=== PATIENT | male | born 1970 | race Caucasian/White ===

== ENCOUNTER 2020-12-28 06:38 | Inpatient (IN) | payer OTHER ==
[~2020-12-28] VITALS: Ht 172.7 cm; Wt 88.0 kg
[2020-12-28 06:44] VITALS: BP 97/58
[2020-12-28 07:04] LABS: ABSOLUTE BASOPHILS 0.1 thou/uL (0.0-0.2); ABSOLUTE EOSINOPHILS 0.1 thou/uL (0.0-0.7); ABSOLUTE LYMPHOCYTES 1.4 thou/uL (0.8-5.3); ABSOLUTE MONOCYTES 1.3 thou/uL (0.0-1.2); ABSOLUTE NEUTROPHILS 8.7 thou/uL (1.6-8.1); BASOPHILS 1.1 %; EOSINOPHILS 0.7 %; HEMATOCRIT 44.8 % (42.0-52.0); HEMOGLOBIN 15.2 gm/dL (14.0-18.0); MCHC 33.9 g/dL (28.0-37.0); MCV 97.4 fL (80.0-100.0); MPV 7.6 fl. (7.2-11.1); NUCLEATED RBCS 0 /100WBC; PLATELET COUNT* 269 thou/uL (150-400); POLYS 75.2 %; RBC 4.61 mil/uL (4.50-6.00); WBC 11.6 thou/uL (4.0-11.0)
[2020-12-28 07:27] LABS: CALCIUM 9.1 mg/dL (8.5-10.1); CREATININE 2.5 mg/dL (0.6-1.3); POTASSIUM 3.4 mmol/L (3.5-5.1)
--- NOTE | 2020-12-28 07:30 | NUR ---
PT STATED HE WAS HAVING A DIFFICULT TIME PROVIDING A URINE SAMPLE BECAUSE OF THE "GUYS BEHIND THE CURTAIN HISSING AT ME". WHEN THIS NURSE ASKED TO ELABORATE, PT STATED HE'S BEEN HALLUCINATING FOR THE LAST "FEW DAYS" & AT FIRST HE THOUGHT THEY WERE REAL BUT NOW KNOWS THAT IT'S NOT, BUT THE VISUAL & AUDITORY HALLUCINATIONS HAVE NOT STOPPED.
[2020-12-28 07:37] LABS: ALBUMIN 3.9 g/dL (3.4-5.0); MAGNESIUM 1.8 mg/dL (1.8-2.4); TOTAL BILIRUBIN 1.6 mg/dL (<0.1-1.0); TOTAL PROTEIN 7.3 g/dL (6.4-8.2)
[2020-12-28 08:11] LABS: URINE BLOOD NEGATIVE (Negative); URINE CLARITY CLEAR; URINE COLOR YELLOW; URINE GLUCOSE-RANDOM TRACE (Negative); URINE KETONES 1+ (Negative); URINE LEUKOCYTES-REFLEX NEGATIVE (Negative); URINE NITRITE-REFLEX NEGATIVE (Negative); URINE PROTEIN TRACE (Negative); URINE UROBILINOGEN >= 8.0 E.U./dl (0.2-1.0)
[2020-12-28 08:14] LABS: ICTOTEST (BILI CONFIRMATORY) Positive (Negative); URINE BILIRUBIN 1+ (Negative)
--- NOTE | 2020-12-28 09:27 | EKG ---
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 : [id number] Requested By: Nat Ross Order Number: [id number] MD: Celestino Gee Measurements Intervals [place] Rate: 104 P: 73 PA: 119 QRS: 66 QRSD: 104 T: 36 QT: 365 QTc: 481 Interpretive Statements Sinus tachycardia Probable left atrial enlargement Abnormal inferior Q waves Minimal ST depression, inferior leads Borderline prolonged QT interval No previous ECG available for comparison Electronically Signed On 12-28-2020 9:27:06 CDT by Celestino Gee [email or web address] <ELECTRONICALLY SIGNED> By: Celestino Gee MD, [facility] 12/28/20 0927 0642 [id number] Celestino Gee MD, [facility] /EPI
[2020-12-28 09:50] VITALS: BP 120/96
[2020-12-28 12:00] VITALS: BP 152/90
[2020-12-28 12:30] VITALS: BP 151/97
[2020-12-28 20:00] VITALS: BP 107/70
[2020-12-28 21:56] LABS: AMP/METHAMP POSITIVE (Negative); BARBITURATES Negative (Negative); BENZODIAZEPINES Negative (Negative); COCAINE Negative (Negative); METHADONE Negative (Negative); OPIATES Negative (Negative); PCP Negative (Negative); THC Negative (Negative)
--- NOTE | 2020-12-29 00:09 | NUR ---
INITIAL ASSESSMENT PT ANSWERING ALL THE ORIENTATION QUESTIONS CORRECTLY. PT HAVING VISUAL HALLUCINATIONS. PT BECOMING MORE AGITATED. PULLING OFF TELEMETRY PULLING IV TUBING. PT FOUND IN ANOTHER PTS ROOM AND WAS CONFUSED. DR MELENDEZ NOTIFIED. HALDOL AND ATIVAN ORDERED AND GIVN. SECURITY IS PRESENTLY WITH PT. UDS CAME BACK POSITIVE FOR METHAMPHETAMINE. 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.
[2020-12-29 03:49] LABS: ABSOLUTE BASOPHILS 0.1 thou/uL (0.0-0.2); ABSOLUTE EOSINOPHILS 0.2 thou/uL (0.0-0.7); ABSOLUTE LYMPHOCYTES 2.3 thou/uL (0.8-5.3); ABSOLUTE MONOCYTES 0.9 thou/uL (0.0-1.2); BASOPHILS 1.1 %; EOSINOPHILS 2.2 %; HEMATOCRIT 40.7 % (42.0-52.0); HEMOGLOBIN 14.1 gm/dL (14.0-18.0); LYMPHOCYTES 27.3 %; MCH 33.9 pg (26.0-34.0); MCHC 34.7 g/dL (28.0-37.0); MCV 97.9 fL (80.0-100.0); MONOCYTES 10.8 %; MPV 7.7 fl. (7.2-11.1); NUCLEATED RBCS 0 /100WBC; PLATELET COUNT* 223 thou/uL (150-400); POLYS 58.6 %; RBC 4.15 mil/uL (4.50-6.00); RDW-CV 15.5 % (10.5-14.5); WBC 8.5 thou/uL (4.0-11.0)
[2020-12-29 04:00] VITALS: BP 100/69
[2020-12-29 04:10] LABS: CALCIUM 8.9 mg/dL (8.5-10.1); POTASSIUM 3.5 mmol/L (3.5-5.1)
[2020-12-29 04:12] LABS: CREATININE 1.3 mg/dL (0.6-1.3)
[2020-12-29 07:37] LABS: ALBUMIN 3.4 g/dL (3.4-5.0); DIRECT BILIRUBIN 0.4 mg/dL (<0.1-0.3); TOTAL PROTEIN 6.7 g/dL (6.4-8.2)
[2020-12-29 08:00] VITALS: BP 109/75
[2020-12-29 12:00] VITALS: BP 123/73
[2020-12-29 16:00] VITALS: BP 108/74
--- NOTE | 2020-12-29 19:04 | NUR ---
PT RESTING ON BED WITH CALL LIGHT AND SITTER CLOSE. PT UP TO SHOWER DAD HERE TO SEE HIM, AND IS UPSET THAT HE WILL BE SENT HOME WITH OUT GOING TO A PSY CENTER. WILL CONTINUE TO MONITOR. PT REMAINS ST TO SR ON TELEMETRY.
[2020-12-30] VITALS: BP 116/81
--- NOTE | 2020-12-30 02:38 | NUR ---
PT SLEEPY AROUSES EASILY. 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 DENIES PAIN.
[2020-12-30 04:00] VITALS: BP 123/77
[2020-12-30 08:00] VITALS: BP 136/85
[2020-12-30 09:40] VITALS: BP 136/85
== END 2020-12-30 10:10 | disposition home or self-care (01) | DRG 641 ==
LOC: M.ERS 06:38 → M.TBA-ER 08:28 → M.2W 10:12
PROVIDERS: Emergency Medicine; ADMIT Internal Medicine; ATTEND Internal Medicine
DX: E86.0 Dehydration (principal); N17.9 Acute kidney failure, unspecified; F41.9 Anxiety disorder, unspecified; F15.10 Other stimulant abuse, uncomplicated; Z20.822 Contact with and (suspected) exposure to COVID-19; F32.9 Major depressive disorder, single episode, unspecified; F43.10 Post-traumatic stress disorder, unspecified